=== PATIENT | male | born 1940 | race Caucasian/White ===

== ENCOUNTER → 2017-08-23 | Outpatient (CLI) | payer MEDICARE, BC ==
[~2017-08-23] MED LIST: ALLOPURINOL100 MG PO; ANDROGEL1% TP; ASPIRIN 81M81 MG/TA2 PO; ASPIRIN E.C. 8181 MG PO; AVAPRO; AVAPRO300 M1 PO; AVODART 0.5MG0.5 MG PO; CALCIUM 600 + V1 TA1 PO; CALCIUM500 MG PO; ELITE MAGNESIUM1 TAB PO; LESCOL; LESCOL XL PO; LESCOL XL80 MG PO; LEVOTHYROXIN0.025 MG PO; LEVOTHYROXIN0.125 MG PO; MAGNESIUM200 MG PO; PERCOCET 325 MG1 TA2 PO; PREDNISONE20 MG PO; PRILOSEC 20MG20 MG PO; REGULOID0.52 GM PO; RT SPIRIVA18 MCG IH; SEA OMEGA 301 SGL PO; SPIRIVA18 MCG IH; SULAR34 MG PO; SULAR8.5 MG PO; SYNTHROID0.125 MG/T PO; VENTOLIN0.09 MG IH; VITAMIN D 400400 IU PO; VOLTAREN 75 DR75 MG PO; ZITHROMAX500 M2 PO; ZOFRAN 4MG T4 MG/TAB PO; ZYLOPRIM 100MG100 MG PO; [UNRECOGNIZED DRUG - OTHER]; [UNRECOGNIZED DRUG - OTHER] PO
== END ==
LOC: COL.RAD 09:14
DX: Z13.6 Encounter for screening for cardiovascular disorders (principal); J43.9 Emphysema, unspecified; E89.0 Postprocedural hypothyroidism; I70.0 Atherosclerosis of aorta; I77.811 Abdominal aortic ectasia; J98.4 Other disorders of lung; Z90.2 Acquired absence of lung [part of]; Z90.49 Acquired absence of other specified parts of digestive tract; Z95.828 Presence of other vascular implants and grafts

== ENCOUNTER → 2018-09-19 | Outpatient (REF) | LOC: ZMSC 15:43 | DX: Z01.89 Encounter for other specified special examinations (principal) ==

== ENCOUNTER → 2018-10-18 | Outpatient (CLI) | payer MEDICARE, BC ==
[~2018-10-18] VITALS: Ht 182.9 cm; Wt 78.2 kg
[~2018-10-18] MED LIST changes: +ANDROGEL1% TOP; +CALCIUM 600/VIT1 CAP PO; +CEROVITE SENIOR1 TA1 PO; +CRESTOR20 MG PO; +FIBERCON PO; +FISH OIL 1000MG1 CAP PO; +MAG-OX 400400 MG/TAB PO; +MUCINEX 60600 MG/TA1 PO; +SYNTHROID0.2 MG/TAB PO; +ZINC SULFATE220 M1 PO
[2018-10-18 09:25] VITALS: BP 152/84; PULSE 67
--- NOTE | 2018-10-18 09:25 | NUR ---
pt to ct scanner per ambulation. Pt in prone position on scanner. Monitors applied. O2 on at 2l/nc.
[2018-10-18 09:30] VITALS: BP 135/80; PULSE 69
--- NOTE | 2018-10-18 09:40 | NUR ---
Dr Moss into talk with pt. No biopsy needed. Pt has pneumonia. Dr Moss will talk to Dr Laureano.
[2018-10-18 09:43] VITALS: BP 140/81; PULSE 68
== END ==
LOC: COL.RAD 09:03
DX: C32.1 Malignant neoplasm of supraglottis (principal)

== ENCOUNTER 2018-10-26 08:17 | Outpatient (RCR) | payer MEDICARE, BC ==
[2018-11-07] MEDS ORDERED: OMEGA-3 1000 MG1 CAP PO (11:14)
[2018-11-07] MEDS ORDERED: FIBER0.52 GM PO (11:16)
[2018-11-07] MEDS ORDERED: MUCINEX 60600 MG/TA1 PO (11:16)
[2018-11-07] MEDS ORDERED: [UNRECOGNIZED DRUG - MIXTURE] (11:19)
[2018-11-07] MEDS ORDERED: COLACE 100100 MG/CAP PO (16:41)
[2018-11-07] MEDS ORDERED: ZOFRAN ODT4 MG PO (16:41)
[2018-11-07] MEDS ORDERED: NORCO 325 MG-51 TAB PO (16:42)
== END 2019-01-24 | disposition home or self-care (01) ==
LOC: WSST
DX: R13.10 Dysphagia, unspecified (principal); C32.9 Malignant neoplasm of larynx, unspecified

== ENCOUNTER 2018-11-07 10:44 | Day surgery (SDC) | payer MEDICARE, BC ==
[~2018-11-07] VITALS: Ht 182.9 cm; Wt 79.5 kg
[2018-11-07] MEDS ORDERED: OMEGA-3 1000 MG1 CAP PO (11:14)
[2018-11-07] MEDS ORDERED: MUCINEX 60600 MG/TA1 PO (11:16)
[2018-11-07] MEDS ORDERED: FIBER0.52 GM PO (11:16)
[2018-11-07] MEDS ORDERED: [UNRECOGNIZED DRUG - MIXTURE] (11:19)
[2018-11-07 11:21] VITALS: BP 128/62; PULSE 61; TEMP 97.7
--- NOTE | 2018-11-07 11:46 | NUR ---
SHRADDHA met with patient, , and dietitian. Patient will be getting a peg tube placed today. Nurse reports patient will not be using the peg tube for nutrition yet but may need it in the future. SHRADDHA explained she can help arrange enteral and supplies from patient's [facility] company of choice. 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 Patient plans to use his company when he needs nutrition though his peg tube. Dietitian reports she will fax orders and recommendations to Dr Raman for when patient requires nutrition through the peg tube.
[2018-11-07 11:48] LABS: ALBUMIN 3.8 gm/dL (3.5-5.0); CALCIUM 8.8 mg/dL (8.4-10.2); CREATININE, serum 0.74 mg/dL (0.66-1.25); POTASSIUM 4.4 mmol/L (3.4-5.0)
[2018-11-07 16:31] VITALS: BP 123/56; PULSE 59; TEMP 97.4
--- NOTE | 2018-11-07 16:31 | NUR ---
Patient arrives to [facility] via cart, accompanied by SPORTS ANALYST and ACLS NURSE. Bedside report received. Patient is drowsy, but arousable to voice. He denies any pain, nausea, or need. His dalx-j-[id number] site is clean, dry, intact. His PEG tube is in place, clamped, covered with abdominal binder on abdomen. brought to the bedside. Patient requests and receives pudding and water - tolerates well. Call light in reach. Will continue to monitor.
[2018-11-07] MEDS ORDERED: COLACE 100100 MG/CAP PO (16:41)
[2018-11-07] MEDS ORDERED: ZOFRAN ODT4 MG PO (16:41)
[2018-11-07] MEDS ORDERED: NORCO 325 MG-51 TAB PO (16:42)
[2018-11-07 16:46] VITALS: BP 124/57; PULSE 57
--- NOTE | 2018-11-07 16:46 | NUR ---
Patient is resting comfortably in room. Sitting up, watching TV. He denies any pain, nausea, or need.
[2018-11-07 17:01] VITALS: BP 140/66; PULSE 52
--- NOTE | 2018-11-07 17:01 | NUR ---
VSS and WNL on room air. Denies any pain, nausea, or need.
--- NOTE | 2018-11-07 17:46 | NUR ---
Discharge criteria has been met. Patient expresses readiness to go home. Discharge teaching with teachback completed with extensive discussion on how to care for the PEG tube at home. Patient and present for teaching. They verbalize understanding and deny any questions at this time. Given paper instructions for reference if needed. Also given extra supplies including drain sponges, slip-tip syringes, graduated cylinders, and tape. Patient changes to clothing independently. Escorted to exit via wheelchair. Discharged to home with ride in private vehicle at 1746.
== END 2018-11-07 17:46 | disposition home or self-care (01) ==
LOC: SDCO 10:44
PROVIDERS: Surgery
DX: C13.9 Malignant neoplasm of hypopharynx, unspecified (principal); E03.9 Hypothyroidism, unspecified; Z80.8 Family history of malignant neoplasm of other organs or systems; K21.9 Gastro-esophageal reflux disease without esophagitis; J44.9 Chronic obstructive pulmonary disease, unspecified; Z79.899 Other long term (current) drug therapy; Z79.82 Long term (current) use of aspirin; Z87.891 Personal history of nicotine dependence; I10 Essential (primary) hypertension; G47.33 Obstructive sleep apnea (adult) (pediatric); D64.9 Anemia, unspecified
CPT/HCPCS: C1788; J0690; J1644; J2405; J2704; J3010; J7030; J7120

== ENCOUNTER → 2020-04-14 | Outpatient (CLI) | payer MEDICARE, BC ==
[~2020-04-14] MED LIST changes: +COLACE 100100 MG/CAP PO; +FIBER0.52 GM PO; +NORCO 325 MG-51 TAB PO; +OMEGA-3 1000 MG1 CAP PO; +ZOFRAN ODT4 MG PO; +[UNRECOGNIZED DRUG - MIXTURE]
== END ==
LOC: ZCOL.LAB 15:54
DX: Z20.828 Contact with and (suspected) exposure to other viral communicable diseases (principal)

== ENCOUNTER 2020-05-10 18:51 | Emergency (ER) | payer MEDICARE, BC ==
[~2020-05-10] VITALS: Ht 182.9 cm; Wt 73.6 kg
[2020-05-10 18:58] VITALS: BP 170/75; TEMP 98.5
[2020-05-10 19:41] LABS: BASO % 0.5 % (0.0-2.0); EOS # 0.3 (0.0-0.7); EOS % 3.9 % (0-4.0); GRAN # 5.1 (1.4-6.5); GRAN % 76.3 % (42.2-75.2); HEMATOCRIT 42.1 % (42.0-52.0); HEMOGLOBIN 14.3 g/dl (13.5-18.0); LYMPH # 0.6 (1.2-3.4); LYMPH % 9.5 % (20.0-51.0); MEAN CELL VOLUME 96 fl (80.0-100.0); MEAN CORPUSCULAR HEMOGLOBIN 33 pg (27.0-31.0); MEAN CORPUSCULAR HGB CONC 34 g/dl (33.0-37.0); MEAN PLATELET VOLUME 10.3 fl (7.4-10.4); MONO # 0.6 (0.1-0.6); MONO % 9.3 % (1.7-9.3); PLATELET COUNT 102 K/mm3 (130-400); REDCELL DISTRIBUTION WIDTH-CV 13.5 % (11.5-14.5)
[2020-05-10] MEDS ORDERED: DOXYCYCLINE 10100 MG PO (19:51)
[2020-05-10] MEDS ORDERED: CEPHALEXIN500 M1 PO (19:51)
[2020-05-10 20:12] VITALS: PULSE 62
== END 2020-05-10 20:17 | disposition home or self-care (01) ==
LOC: COL.ER 18:51
PROVIDERS: Emergency Medicine
DX: T81.41XA Infection following a procedure, superficial incisional surgical site, initial encounter (principal); L03.114 Cellulitis of left upper limb; I10 Essential (primary) hypertension; E03.9 Hypothyroidism, unspecified; J44.9 Chronic obstructive pulmonary disease, unspecified; Z87.891 Personal history of nicotine dependence; Z85.810 Personal history of malignant neoplasm of tongue; Z98.890 Other specified postprocedural states; Z79.82 Long term (current) use of aspirin; Z79.890 Hormone replacement therapy
CPT/HCPCS: J0696

== ENCOUNTER 2022-12-31 08:14 | Emergency (ER) | payer MEDICARE, BC ==
[~2022-12-31] VITALS: Ht 182.9 cm; Wt 73.6 kg
[~2022-12-31 08:14] MED LIST changes: +AMOXICILLIN 8751 TAB PO; +CEPHALEXIN500 M1 PO; +DOXYCYCLINE 10100 MG PO
[2022-12-31 08:23] VITALS: TEMP 97.2
[2022-12-31 08:52] LABS: COLLECTION METHOD IN
[2022-12-31 09:00] LABS: SQUAMOUS EPITHELIAL None Seen /hpf (0-10); URINE BACTERIA None Seen /hpf (NONE SEEN); URINE RBC 0-2 /hpf (0-2)
[2022-12-31 09:05] LABS: URINE APPEARANCE Clear (CLEAR/HAZY); URINE BLOOD Negative (NEGATIVE); URINE COLOR Yellow (YELLOW); URINE GLUCOSE Negative (NEGATIVE); URINE KETONE Negative (NEGATIVE); URINE NITRATE Negative (NEGATIVE); URINE PROTEIN(semi-quant) Negative (NEGATIVE); URINE UROBILINOGEN 0.2 E.U/dL (0.2-1.0)
[2022-12-31 09:48] VITALS: BP 181/93; PULSE 64
== END 2022-12-31 09:50 | disposition home or self-care (01) ==
LOC: COL.ER 08:14
PROVIDERS: Emergency Medicine
DX: N40.1 Benign prostatic hyperplasia with lower urinary tract symptoms (principal); R33.8 Other retention of urine; Z87.891 Personal history of nicotine dependence